=== PATIENT | female | born 1955 | race Caucasian/White ===

== ENCOUNTER 2018-06-03 11:43 | Emergency (ER) | payer OTHER ==
[2018-06-03 11:53] VITALS: BMI 22.6
--- NOTE | 2018-06-03 12:07 | PDOC ---
History of Present Illness - General Chief Complaint: Tremors Stated Complaint: Tremors Time Seen by Provider: 06/03/18 12:06 - History of Present Illness Initial Comments: 06/03/18 12:49 The patient is a 63 year old female with a PMH of Parkinson's Disease, necrotizing pancreatitis, and vaginal boils who presents to the ED c/o numbness and pain. At baseline patient has L sided numbness but states her LUE numbness has worsened over the last few weeks, especially the last 24 hours and the pain is similar to "ants crawling in my body." Pain is on LUE, LLE, and in her abdomen. At baseline patient has abdominal pain for which she take a daily Aleve. Patient notes she was diagnosed with PD in 2005 and she has been evaluated for for the numbness by her neurologist, Dr. Aaron Rodriguez, however he has not been able to find any cause separate from her Parkinson's Disease. ROS is positive for dysuria and increased urgency as well as non-healing vaginal boil. Patient denies any fevers, chills, chest pain, shortness of breath, nausea/ vomiting, diarrhea/constipation. NKDA Surgical: cholecystectomy, hysterectomy, pancreatectomy Social: denies toxic habits PMD: Dr. Tresa Ordonez Neurologist: Dr. Aaron Rodriguez Past History - Past Medical History Allergies/Adverse Reactions: Allergies Allergy/AdvReac Type Severity Reaction Status Date / Time No Known Allergies Allergy Verified 06/03/18 12:47 Home Medications: Ambulatory Orders Gabapentin 100 mg PO TID PRN #21 capsule 06/03/18 Cardiac Disorders: Yes (MUMMUR) CVA: No COPD: No DVT: No Dementia: No Diabetes: No - Immunization History Immunization Up to Date: Yes - Suicide/Smoking/Psychosocial Hx Smoking History: Never smoked Information on smoking cessation initiated: No Hx Alcohol Use: No Drug/Substance Use Hx: No Substance Use Type: None Review of Systems - Review of Systems Constitutional: No: Chills, Fever HEENTM: No: Blurred Vision, Double Vision Respiratory: No: Cough, Shortness of Breath Cardiac (ROS): No: Chest Pain, Lightheadedness, Palpitations, Syncope ABD/GI: Yes: Abdominal cramping. No: Constipated, Diarrhea, Nausea, Vomiting : Yes: Dysuria, Urgency, Lesions Neurological: Yes: Numbness, Weakness *Physical Exam - Vital Signs Last Vital Signs Temp Pulse Resp BP Pulse Ox 98.2 F 83 16 147/78 97 06/03/18 11:48 06/03/18 11:48 06/03/18 11:48 06/03/18 11:48 06/03/18 11:48 - Physical Exam General Appearance: Yes: Nourished, Appropriately Dressed HEENT: positive: EOMI, DONOVAN, Normal Voice, Hearing Grossly Normal Neck: positive: Trachea midline, Supple Respiratory/Chest: positive: Lungs Clear, Normal Breath Sounds Cardiovascular: positive: S1, S2, Murmur Vascular Pulses: Dorsalis-Pedis (R): 2+, Doralis-Pedis (L): 2+ Female Pelvic Exam: positive: lesions (2 cm lesion @ 3 o'clock position on inferior L edge of labia minora - not TTP, no noted discharge) Gastrointestinal/Abdominal: positive: Flat, Soft Musculoskeletal: negative: CVA Tenderness (R), CVA Tenderness (L) Extremity: positive: Normal Capillary Refill, Normal Inspection Integumentary: positive: Normal Color, Dry, Warm Neurologic: positive: Fully Oriented, Alert, Numbness (LUE numbness (chronic)) ED Treatment Course - LABORATORY CBC & Chemistry Diagram: 06/03/18 13:06 06/03/18 13:06 Medical Decision Making - Medical Decision Making 06/03/18 13:12 63 year old female presents with worsening of her chronic numbness and chronic pain. ROS positive for dysuria, urinary urgency and vaginal boil H/o Parkinson 's disease w/baseline numbness. Frontal diagnosis: Brain mass/lesion, CVA/TIA (less likely), UTI/pyelonephritis , electrolyte derangement. PLAN: 1. CT Head 2. CBC, CMP 3. UA/UC + pelvic exam Reassess. 06/03/18 13:40 UA clean No leukocytosis CMP Pending. Patient ambulatory 06/03/18 14:16 CMP negative for electrolyte derangement. Pelvic exam shows healing 2cm non-tender lesion, no visible discharge appreciated, patient notes lesion c/w prior lesions, decreasing in size, non- painful. No immediate intervention required. Patient counseled to f/u with PMD. Head CT negative for acute ischemia. At this time, we are unable to elucidate a cause of exacerbation of patient's chronic pain and numbness, however we have ruled out acute neurologic pathology including CVA. Call to patient's neurologist, Dr. Rodriguez, pending. Patient received Tylenol - will reassess pain. 06/03/18 14:43 Patient reassessed @ bedside Symptomatically improved, ambulatory around unit. Will discharge home with return precautions, close neurology follow-up ( including referral for additional neurologic evaluation outside current care) and 1 week prescription for Gabapentin. 06/03/18 17:[address] Nation ([facility] neurology) - covering for patient's neurologist, Dr. Rodriguez. Notes patient has a h/o numbness and weakness. Explained evaluation and discharge plan -- Dr. Nation to relay information to Dr. Rodriguez. *DC/Admit/Observation/Transfer Diagnosis at time of Disposition: Numbness - Discharge Dispostion Disposition: HOME Condition at time of disposition: Good Decision to Admit order: No - Prescriptions Prescriptions: Gabapentin 100 mg PO TID PRN #21 capsule PRN Reason: Pain - Referrals Referrals: Steve Ordonez MD [Primary Care Provider] - - Patient Instructions Printed Discharge Instructions: Parkinson's Disease (Alternative Therapy), DI for Parkinson's Disease Additional Instructions: You were evaluated today for exacerbation of your chronic pain and numbness. We have evaluated you for any acute neurologic process (including stroke, or brain mass) as well as any infectious process (including urinary tract infection ). A CT scan of your head as well as your labs showed no concerning findings. At this time you are safe for discharge home. We are providing a referral to a neurologist, Dr. Cline, please see him within the next 2-3 days for further evaluation. We have sent a prescription for Gabapentin to your pharmacy. Please consult with your neurologist and your primary care doctor if you wish to continue this medication. Return to the Emergency Department for any new/worsening/concerning symptoms. - Post Discharge Activity
[2018-06-03] MEDS ORDERED: ACETAMINOPHEN 1000 MG/100 ML VIAL (NON FORMULARY) IVPB ONE (12:44)
[2018-06-03] MEDS ORDERED: SODIUM CHLORIDE 0.9% 500 ML INFUS.BAG IV ONE (12:45)
[2018-06-03 13:04] LABS: URINE APPEARANCE CLEAR; URINE BILIRUBIN NEGATIVE (<2.0 mg/dL); URINE COLOR STRAW; URINE GLUCOSE (UA) NEGATIVE (NEGATIVE); URINE KETONE NEGATIVE (NEGATIVE); URINE LEUK ESTERASE NEGATIVE (NEGATIVE); URINE NITRITE NEGATIVE (NEGATIVE); URINE PROTEIN NEGATIVE (NEGATIVE); URINE UROBILINOGEN NEGATIVE mg/dL (0.2-1.0)
--- NOTE | 2018-06-03 13:14 | PDOC ---
Attending Attestation - Resident Resident Name: Natacha Nunez - ED Attending Attestation I have performed the following: I have examined & evaluated the patient, The case was reviewed & discussed with the resident, I agree w/resident's findings & plan, Exceptions are as noted - HPI HPI: 06/03/18 15:56 Agree with residents HPI - Physicial Exam PE: 06/03/18 16:02 Agree with Residents PE - Medical Decision Making 06/03/18 16:02 63 years old past medical history significant for Parkinson's disease on medication diagnosed in 2005 with chronic left-sided body numbness since 2005 which has been somewhat worse over the last month and somewhat worse over the last few weeks. Patient follows with a neurologist for this. No new headache weakness. Numbness is described as a painful tingling. Neurologic examination notable only for subjective decreased sensation to the left arm leg face but does include both sides of the forehead The head CT was unremarkable laboratory analysis was unremarkable. Given the chronicity of her symptoms I do not find her findings represented an acute neurologic event. We provided her with one of our neurologists as follow-up and also advised that she follow-up with her neurologist within 2-3 days. Findings, need for follow-up and strict return instructions discussed with patient.
[2018-06-03 13:23] LABS: BASO % 0.6 % (0-2.0); EOS % 0.4 % (0-4.5); HEMATOCRIT 39.7 % (32.4-45.2); HEMOGLOBIN 13.1 GM/dL (10.7-15.3); LYMPH % 25.6 % (8-40); MCH 27.8 pg (25.7-33.7); MCHC 33.1 g/dl (32.0-36.0); MEAN CELL VOLUME 84.2 fl (80-96); MEAN PLT VOLUME 7.9 fl (7.5-11.1); NEUT % 68.4 % (42.8-82.8); PLATELET COUNT 210 K/MM3 (134-434); RBC 4.72 M/mm3 (3.60-5.2); RDW 13.6 % (11.6-15.6); WHITE BLOOD COUNT 5.2 K/mm3 (4.0-10.0)
[2018-06-03] MEDS ORDERED: ACETAMINOPHEN INJECTION 100 ML IVPB ONE (13:28)
[2018-06-03 13:45] LABS: ALBUMIN 4.2 g/dl (3.4-5.0); ALK PHOS 105 U/L (45-117); ANION GAP 7 MMOL/L (8-16); BLOOD UREA NITROGEN 13 mg/dL (7-18); CALCIUM 9.2 mg/dL (8.5-10.1); CHLORIDE 105 mmol/L (98-107); CO2 29 mmol/L (21-32); CREATININE 0.6 mg/dL (0.55-1.3); GLUCOSE,RANDOM 96 mg/dL (74-106); POTASSIUM 4.1 mmol/L (3.5-5.1); SGOT/AST 20 U/L (15-37); SGPT/ALT 26 U/L (13-61); SODIUM 141 mmol/L (136-145)
[2018-06-03 14:42] VITALS: BP 140/76; PULSE 80; TEMP 98.1
== END 2018-06-03 15:00 | disposition home or self-care (01) ==
LOC: JER 11:43
PROC: 3E033NZ Introduction of Analgesics, Hypnotics, Sedatives into Peripheral Vein, Percutaneous Approach (ICD-10-PCS; principal; 2018-06-03)
DX: R20.0 Anesthesia of skin (principal); G89.29 Other chronic pain; G20 Parkinson's disease; K85.91 Acute pancreatitis with uninfected necrosis, unspecified
CPT/HCPCS: 36415; 70450-TC; 80053; 81003; 83605; 85025; 87086; 96374; 99282-25; J0131

== ENCOUNTER 2019-01-09 14:41 | Emergency (ER) | payer OTHER ==
[2019-01-09 14:48] VITALS: TEMP 98.1; BMI 24.9
--- NOTE | 2019-01-09 14:48 | PDOC ---
Rapid Medical Evaluation Medical Evaluation: Allergies Allergy/AdvReac Type Severity Reaction Status Date / Time No Known Allergies Allergy Verified 06/03/18 12:47 I have performed a brief in-person evaluation of this patient. The patient presents with a chief complaint of: Hx of Parkinson's presents with tingling along plantar surface of feet which started couple of months ago, but worsening the past few days; has seen his neurologist and MRI of L spine this year showing pinched nerve; has chronic L sided weakness, but states now also extending to right side; was advised to f/u with her PCP and has appt next week Pertinent physical exam findings: In NAD, +LUE pill rolling tremor I have ordered the following: Labs The patient will proceed to the ED for further evaluation. 01/09/19 14:45
--- NOTE | 2019-01-09 15:11 | PDOC ---
History of Present Illness - General Chief Complaint: Pain Stated Complaint: burning of feet, feeling 'faint' Time Seen by Provider: 01/09/19 14:45 - History of Present Illness Initial Comments: 01/09/19 15:11 Ms. Walls is a 63 yo female w/ pmh of Parkinson's, prior necrotizing pancreatitis, prior vaginal boils who presents for evaluation of exacerbation of her chronic L sided shaking on parasthesias. Patient reports symptoms have worsened and that she is additionally having some burning gastritis symptoms for the last several days. Denies any oter symptoms at this time. Had a L spine MRI in the past showing a pinched nerve however no other change in symptoms at this time. The patient denies chest pain, shortness of breath, headache and dizziness. Denies fever, chills, nausea, vomit, diarrhea and constipation. Denies dysuria, frequency, urgency and hematuria. PMD: Dr. Tresa Ordonez Neurologist: Dr. Aaron Rodriguez Past History - Past Medical History Allergies/Adverse Reactions: Allergies Allergy/AdvReac Type Severity Reaction Status Date / Time No Known Allergies Allergy Verified 01/09/19 14:49 Home Medications: Ambulatory Orders Naproxen Sodium [Aleve] 220 mg PO PRN 01/09/19 Tizanidine HCl 2 mg PO PRN 01/09/19 Trihexyphenidyl HCl 4 mg PO QID 01/09/19 Cardiac Disorders: Yes (MUMMUR) CVA: No COPD: No DVT: No Dementia: No Diabetes: No Other medical history: parkinson's dis - Surgical History Cholecystectomy: Yes - Immunization History Immunization Up to Date: Yes - Suicide/Smoking/Psychosocial Hx Smoking History: Never smoked Information on smoking cessation initiated: No Hx Alcohol Use: No Drug/Substance Use Hx: No Substance Use Type: None Review of Systems - Review of Systems Comments:: 01/09/19 15:29 GENERAL/CONSTITUTIONAL: No fever or chills. No weakness. HEAD, EYES, EARS, NOSE AND THROAT: No change in vision. No ear pain or discharge. No sore throat. CARDIOVASCULAR: No chest pain or shortness of breath RESPIRATORY: No cough, wheezing, or hemoptysis. GASTROINTESTINAL: No nausea, vomiting, diarrhea or constipation. GENITOURINARY: No dysuria, frequency, or change in urination. MUSCULOSKELETAL: No joint or muscle swelling or pain. No neck or back pain. SKIN: No rash NEUROLOGIC: +Shaking w/ L sided parasthesias as described. No headache, vertigo , loss of consciousness, or change in strength/sensation. ENDOCRINE: No increased thirst. No abnormal weight change HEMATOLOGIC/LYMPHATIC: No anemia, easy bleeding, or history of blood clots. ALLERGIC/IMMUNOLOGIC: No hives or skin allergy. *Physical Exam - Vital Signs Last Vital Signs Temp Pulse Resp BP Pulse Ox 98.1 F 95 H 18 147/85 98 01/09/19 14:46 01/09/19 14:46 01/09/19 14:46 01/09/19 14:46 01/09/19 14:46 - Physical Exam Comments: 01/09/19 15:30 GENERAL: Awake, alert, and fully oriented, in no acute distress HEAD: No signs of trauma, normocephalic, atraumatic EYES: PERRLA, EOMI, sclera anicteric, conjunctiva clear ENT: Auricles normal inspection, hearing grossly normal, nares patent, oropharynx clear without exudates. Moist mucosa NECK: Normal ROM, supple, no lymphadenopathy, JVD, or masses LUNGS: No distress, speaks full sentences, clear to auscultation bilaterally HEART: Regular rate and rhythm, normal S1 and S2, no murmurs, rubs or gallops, peripheral pulses normal and equal bilaterally. ABDOMEN: Soft, nontender, normoactive bowel sounds. No guarding, no rebound. No masses EXTREMITIES: Normal inspection, Normal range of motion, no edema. No clubbing or cyanosis. NEUROLOGICAL: +L sided pill-rolling tremor noted c/w parkinson's diagnosis. Cranial nerves II through XII grossly intact. Normal speech, normal gait, no focal sensorimotor deficits SKIN: Warm, Dry, normal turgor, no rashes or lesions noted. ED Treatment Course - LABORATORY CBC & Chemistry Diagram: 01/09/19 15:19 01/09/19 15:15 Medical Decision Making - Medical Decision Making 01/09/19 17:17 Ms. Walls is a 63 yo female w/ pmh as described who presents for evaluation of symptoms c/w progression of parkinson's vs. infection vs. other neurological illness. Patient evaluate with labs as below for exacerbating factors or other acute process. Patient labs grossly wnl. Patient given valium and tylenol for symptomatic relief. Discussed patient with Dr. Culp covering for neurologist who does not believe any emergent process occuring or indication for intervention at this time. Dr. Culp will f/u w/ neurologist for notification for further outpatient management. Recommends discharge at this time. Will follow-up with this plan and discharge patient to home. Laboratory Results - last 24 hr 01/09/19 01/09/19 01/09/19 15:15 15:19 16:15 WBC 5.2 RBC 4.92 Hgb 13.9 Hct 42.1 MCV 85.6 MCH 28.2 MCHC 32.9 RDW 13.6 Plt Count 219 MPV 8.7 D Absolute Neuts (auto) 3.0 Neutrophils % 57.2 Lymphocytes % 33.1 D Monocytes % 7.5 Eosinophils % 1.5 D Basophils % 0.7 Nucleated RBC % 0 Sodium 139 Potassium 3.5 Chloride 104 Carbon Dioxide 30 Anion Gap 5 L BUN 13 Creatinine 0.6 Est GFR (CKD-EPI)AfAm 110.86 Est GFR (CKD-EPI)NonAf 95.65 Random Glucose 107 H Calcium 9.6 Magnesium 2.4 Total Bilirubin 1.1 H AST 20 ALT 30 Alkaline Phosphatase 112 Creatine Kinase 100 Troponin I < 0.02 Total Protein 7.0 Albumin 4.5 Lipase 112 Urine Color Yellow Urine Appearance Clear Urine pH 6.0 Ur Specific [place] 1.013 Urine Protein Negative Urine Glucose (UA) Negative Urine Ketones Negative Urine Blood Negative Urine Nitrite Negative Urine Bilirubin Negative Urine Urobilinogen 0.2 Ur Leukocyte Esterase Trace Urine WBC (Auto) 3 Urine RBC (Auto) 1 Urine Casts (Auto) 3 U Epithel Cells (Auto) 0.8 Urine Bacteria (Auto) 8.6 *DC/Admit/Observation/Transfer Diagnosis at time of Disposition: Tremor - Discharge Dispostion Disposition: HOME - Referrals Referrals: Steve Ordonez MD [Primary Care Provider] - - Patient Instructions Printed Discharge Instructions: DI for Parkinson's Disease Additional Instructions: You were evaluated today in the ER for your tremors and pain. We performed laboratory and chest xray evaluation with no concerning findings. We also consulted your neurologist who did believe any emergent process is occurring requiring admission. Please follow-up with neurology outpatient early next week for further evaluation. Return to ER if any fever, chills, increase in pain, or other concerning symptoms. - Post Discharge Activity
[2019-01-09] MEDS ORDERED: diazePAM 2 MG TABLET PO ONE (15:25)
[2019-01-09] MEDS ORDERED: ACETAMINOPHEN 1000 MG/100 ML VIAL (NON FORMULARY) IVPB ONE (15:25)
[2019-01-09] MEDS ORDERED: ACETAMINOPHEN INJECTION 100 ML IVPB ONE (15:34)
[2019-01-09] MEDS ORDERED: diazePAM 2 MG TABLET ONE (15:34)
[2019-01-09 15:40] LABS: BASO % 0.7 % (0-2.0); EOS % 1.5 % (0-4.5); HEMATOCRIT 42.1 % (32.4-45.2); HEMOGLOBIN 13.9 GM/dL (10.7-15.3); LYMPH % 33.1 % (8-40); MCH 28.2 pg (25.7-33.7); MCHC 32.9 g/dl (32.0-36.0); MEAN CELL VOLUME 85.6 fl (80-96); MEAN PLT VOLUME 8.7 fl (7.5-11.1); MONO % 7.5 % (3.8-10.2); NEUT % 57.2 % (42.8-82.8); PLATELET COUNT 219 K/MM3 (134-434); RBC 4.92 M/mm3 (3.60-5.2); RDW 13.6 % (11.6-15.6); WHITE BLOOD COUNT 5.2 K/mm3 (4.0-10.0)
[2019-01-09 16:08] LABS: ALBUMIN 4.5 g/dl (3.4-5.0); ALK PHOS 112 U/L (45-117); ANION GAP 5 MMOL/L (8-16); BILIRUBIN,TOTAL 1.1 mg/dL (0.2-1); BLOOD UREA NITROGEN 13 mg/dL (7-18); CALCIUM 9.6 mg/dL (8.5-10.1); CHLORIDE 104 mmol/L (98-107); CO2 30 mmol/L (21-32); CREATININE 0.6 mg/dL (0.55-1.3); GLUCOSE,RANDOM 107 mg/dL (74-106); LIPASE 112 U/L (73-393); MAGNESIUM 2.4 mg/dL (1.8-2.4); POTASSIUM 3.5 mmol/L (3.5-5.1); SGOT/AST 20 U/L (15-37); SGPT/ALT 30 U/L (13-61); SODIUM 139 mmol/L (136-145)
--- NOTE | 2019-01-09 16:10 | PDOC ---
Documentation entered by Heike Bruce SCRIBE, acting as scribe for Scottie Lovell MD. Scottie Lovell MD: This documentation has been prepared by the Teo lopez Amanda, SCRIBE, under my direction and personally reviewed by me in its entirety. I confirm that the documentation accurately reflects all work, treatment, procedures, and medical decision making performed by me. Attending Attestation - Resident Resident Name: Evermary annVidal - ED Attending Attestation I have performed the following: I have examined & evaluated the patient, The case was reviewed & discussed with the resident, I agree w/resident's findings & plan, Exceptions are as noted - HPI HPI: 01/09/19 16:02 The patient is a 63 year old female with a significant past medical history of Parkinson's, prior necrotizing pancreatitis, who presents for evaluation of increased shaking due to her Parkinsons. She states her parkinsons disease is worse on some days and better on others. She states her current symptoms are similar to her bad days. She states she was concerned when she took her medications and her shaking did not improve. She states her medications, however , do not always improve her tremors. She also reports mild epigastric pain which is exacerbated with eating too fast. The patient denies chest pain, shortness of breath, headache and dizziness. Denies fever, chills, nausea, vomit, diarrhea and constipation. Denies dysuria, frequency, urgency and hematuria. PMD: Dr. Tresa Ordonez Neurologist: Dr. Aaron Rodriguez - Physicial Exam PE: 01/09/19 15:47 Vitals: Triage vital signs reviewed General Appearance: No acute distress, well nourished, well developed Head: Atraumatic Eyes: Pupils equal reactive round, extraocular movement intact Neck: Supple; No nuchal rigidity Chest Wall: Nontender Cardiac: Regular rate and rhythm, no murmurs, no rubs, no gallops Lungs: Clear to auscultation bilateral, good air movement bilaterally Abdomen: Soft, nondistended, normal bowel sounds, nontender to palpation Extremities: Full range of motion to all extremities, no cyanosis, clubbing, or edema Skin: Warm and dry, no rashes or lesions, no rash, no petechiae Neuro: (+) resting tremor, 4+/5 weakness on left LE which is baseline as per patient. AOX3; Cranial Nerves 2-12 grossly intact, Strength intact to all extremities, Sensation intact to all extremities, gait normal Psych: Normal mood, normal affect - Medical Decision Making 01/09/19 16:11 63 years old with Parkinson's presents with waxing and waning of tremor and leg weakness. Patient has had these same symptoms for several months usually they can be controlled by her home medications she noticed that her symptoms have slightly worsened today. Patient is able to ambulate with steady gait around the emergency department she was concerned of possible infection. Her workup in the emergency department has included a laboratory analysis a chest x-ray urinalysis. No acute findings noted on her laboratory analysis If no evidence of infection on her chest x-ray and urinalysis we will discussed with patient's neurologist if any medication changes need to be made.
[2019-01-09 16:47] LABS: EPI CELLS 0.8 /HPF (0-5/HPF); URINE APPEARANCE CLEAR; URINE BACTERIA 8.6 /hpf (NEGATIVE); URINE BILIRUBIN NEGATIVE (NEGATIVE); URINE CASTS 3 /lpf (0-8); URINE COLOR YELLOW; URINE GLUCOSE (UA) NEGATIVE (NEGATIVE); URINE KETONE NEGATIVE (NEGATIVE); URINE LEUK ESTERASE TRACE (NEGATIVE); URINE NITRITE NEGATIVE (NEGATIVE); URINE PROTEIN NEGATIVE (NEGATIVE); URINE RBC 1 /hpf (0-4); URINE UROBILINOGEN 0.2 mg/dL (0.2-1.0); URINE WBC 3 /hpf (0-5)
[2019-01-09 18:09] VITALS: BP 123/78; PULSE 68
== END 2019-01-09 18:10 | disposition home or self-care (01) ==
LOC: JER 14:41
PROC: 3E033NZ Introduction of Analgesics, Hypnotics, Sedatives into Peripheral Vein, Percutaneous Approach (ICD-10-PCS; principal; 2019-01-09)
DX: R25.1 Tremor, unspecified (principal); G20 Parkinson's disease; R29.898 Other symptoms and signs involving the musculoskeletal system
CPT/HCPCS: 36415; 71045-TC-FY; 80053; 81003; 82550; 83690; 83735; 84484; 85025; 87086; 96374; 99282-25; J0131